=== PATIENT | male | born 1970 | race Caucasian/White ===

== ENCOUNTER 2017-02-03 08:58 | Emergency (ER) | payer SELFPAY ==
[~2017-02-03] VITALS: Ht 179.1 cm; Wt 120.2 kg
[2017-02-03] MEDS ORDERED: SODIUM CHLOR 0.9% 1000 ML INJ 1,000 ML IV SCH (09:05)
[2017-02-03] MEDS ORDERED: SODIUM CHLORIDE 0.9% FLUSH 10 ML FLUSH IV FLUSH PRN (09:15)
[2017-02-03] MEDS ORDERED: HYDROmorphone HCL PF 1 MG/ML VIAL IVS ONE (09:15)
[2017-02-03 09:18] VITALS: BP 141/100; PULSE 73; RESP 24; TEMP 97.4; O2SAT 98
[2017-02-03 09:20] VITALS: O2SAT 98
[2017-02-03 09:46] LABS: AUTOMATED NEUTROPHIL # 8.1 TH/MM3 (1.8-7.7); BASOPHIL % 0.4 % (0.0-2.0); EOSINOPHIL % 0.5 % (0.0-4.0); HEMATOCRIT 43.6 % (39.0-51.0); HEMO FLAGS DIFF FINAL; LYMPH % 10.4 % (9.0-44.0); MEAN CELL VOLUME 88.9 FL (80.0-100.0); MEAN CORPUSCULAR HEMOGLOBIN 30.3 PG (27.0-34.0); MEAN CORPUSCULAR HGB CONC 34.1 % (32.0-36.0); MONO % 4.2 % (0.0-8.0); NEUT % 84.5 % (16.0-70.0); PLATELET COUNT 197 TH/MM3 (150-450); RED CELL DISTRIBUTION WIDTH 13.3 % (11.6-17.2); WHITE BLOOD COUNT 9.6 TH/MM3 (4.0-11.0)
[2017-02-03 09:56] LABS: ANION GAP 7 MEQ/L (5-15); AST (GOT) 20 U/L (15-37); BICARBONATE 23.2 MEQ/L (21.0-32.0); BLOOD UREA NITROGEN 16 MG/DL (7-18); CHLORIDE 107 MEQ/L (98-107); GLOMERULAR FILTRATION RATE 61 ML/MIN (>89); POTASSIUM 3.7 MEQ/L (3.5-5.1); SODIUM (NA) 137 MEQ/L (136-145)
[2017-02-03 09:57] LABS: ALT (GPT) 34 U/L (12-78)
[2017-02-03 09:59] LABS: ALKALINE PHOSPHATASE 79 U/L (45-117); TOTAL BILIRUBIN ADULT 0.6 MG/DL (0.2-1.0)
--- NOTE | 2017-02-03 10:29 | RADRPT ---
EXAM DATE/TIME: 02/03/2017 09:40 [place] COMPARISON: No previous studies available for comparison. INDICATIONS : Left side abdominal pain. ORAL CONTRAST: No oral contrast ingested. RADIATION DOSE: 23.00 CTDIvol (mGy) ; Patient body habitus MEDICAL HISTORY : None SURGICAL HISTORY : None. ENCOUNTER: Initial ACUITY: 1 day PAIN SCALE: 6/10 LOCATION: Left lower quadrant TECHNIQUE: Volumetric scanning of the abdomen and pelvis was performed. Using automated exposure control and ad justment of the mA and/or kV according to patient size, radiation dose was kept as low as reasonably achievable to obtain optimal diagnostic quality images. DICOM format image data is available electro nically for review and comparison. FINDINGS: LOWER LUNGS: The visualized lower lungs are clear. LIVER: Homogeneous density without lesion. There is no dilation of the biliary tree. No calcified gallston es. SPLEEN: Normal size without lesion. PANCREAS: Within normal limits. KIDNEYS: There is a 2 mm stone either within the intramural segment of the left ureter at the UVJ or just with in the urinary bladder itself. There is mild hydronephrosis and hydroureter on the left. Mild perinep hric stranding. A 2 mm nonobstructing stone involving the right kidney. No hydronephrosis on the righ t. ADRENAL GLANDS: Within normal limits. VASCULAR: There is no aortic aneurysm. BOWEL/MESENTERY: The stomach, small bowel, and colon demonstrate no acute abnormality. There is no free intraperitone al air or fluid. ABDOMINAL WALL: Within normal limits. RETROPERITONEUM: There is no lymphadenopathy. BLADDER: No wall thickening or mass. REPRODUCTIVE: Within normal limits. INGUINAL: There is no lymphadenopathy or hernia. MUSCULOSKELETAL: Bilateral L5 pars defects with grade 1 anterolisthesis. CONCLUSION: 1. 2 mm stone either within the intramural segment of the left ureter at the UVJ or just within the u rinary bladder lumen. There is mild hydronephrosis and hydroureter. 2. 2 mm nonobstructing stone involving the right kidney. 3. Bilateral L5 pars defects with grade 1 anterolisthesis. Huy Mccormack Jr., MD on February 03, 2017 at 10:08 Board Certified Radiologist. This report was verified electronically.
[2017-02-03 10:40] LABS: BLOOD, URINE MOD (NEG); COMMENT (UR) CULT NOT INDICATED; CULTURE IF INDICATED CULT NOT INDICATED; GLUCOSE,URINE TRACE mg/dL (NEG); HYALINE CAST, URINE 1 /lpf (RARE); KETONE, URINE NEG (NEG); MUCUS URINE FEW /lpf (OCC); NITRITE,URINE NEG (NEG); SQUAMOUS EPITHELIAL CELL URINE <1 /hpf (0-5); URINE COLOR YELLOW (YELLW/STRAW)
[2017-02-03 11:07] VITALS: BP_SYST 131; BP_SYST 151; BP_DIAS 89; BP_DIAS 96; PULSE 100; PULSE 96; RESP 20; TEMP 97.7; TEMP 97.8; O2SAT 100
[2017-02-03] MEDS ORDERED: ZOFR4TAB3 SL (11:18)
--- NOTE | 2017-02-03 11:19 | PD ---
HPI Chief Complaint: Abdominal Pain Time Seen by Provider: 09:05 Travel History International Travel<30 days: No Contact w/Intl Traveler<30days: No Traveled to known affect area: No History of Present Illness HPI 46-year-old male came to the emergency room with history of severe sudden onset left lower quadrant pain that started early this morning. Patient was brought in by EMS and was thrashing on the stretcher. He was diaphoretic but vital signs were stable. Patient was nauseous but did not vomit. It was difficult to get much history out of the patient given the agony he was displaying. As per the paramedics patient has not been to an emergency room in the past. He has history of sciatica but otherwise relatively healthy. They brought his medication bottles from home and mostly there was anti-inflammatory medication. Patient was awake but in severe distress. Patient told me that the pain did not move from the spot it started which was the left lower quadrant. PFSH Past Medical History Narrative Medical List of his past medical, surgical, social and family history is reviewed from the nursing note. Diminished Hearing: No GERD: Yes Medical other: Yes (SCIATICA) Social History Alcohol Use: No Tobacco Use: No (QUIT 2009) Substance Use: No Allergies-Medications (Allergen,Severity, Reaction): Coded Allergies: codeine (Verified Allergy, Intermediate, 02/03/17) Comments List of his allergies reviewed from the nursing note. Reported Meds & Prescriptions Reported Meds & Active Scripts Active Zofran Odt (Ondansetron Odt) 4 Mg Tab 4 Mg SL Q6HR PRN Narrative Medication Awaiting for the nurse to the medical reconciliation. Review of Systems Except as stated in HPI: all other systems reviewed are Neg Gastrointestinal: Positive: Abdominal Pain Physical Exam Narrative GENERAL: Awake, alert, obese, significant distress SKIN: Focused skin assessment warm/dry. HEAD: Atraumatic. Normocephalic. EYES: Pupils equal and round. No scleral icterus. No injection or drainage. ENT: No nasal bleeding or discharge. Mucous membranes pink and moist. NECK: Trachea midline. No JVD. CARDIOVASCULAR: Regular rate and rhythm. No murmur appreciated. RESPIRATORY: No accessory muscle use. Clear to auscultation. Breath sounds equal bilaterally. GASTROINTESTINAL: Abdomen soft, non-tender, nondistended. Hepatic and splenic margins not palpable. MUSCULOSKELETAL: No obvious deformities. No clubbing. No cyanosis. No edema. NEUROLOGICAL: Awake and alert. No obvious cranial nerve deficits. Motor grossly within normal limits. Normal speech. PSYCHIATRIC: Appropriate mood and affect; insight and judgment normal. Data Data Last Documented VS Vital Signs Date Time Temp Pulse Resp B/P (MAP) Pulse Ox O2 Delivery O2 Flow Rate FiO2 02/03/17 11:21 20 02/03/17 11:07 97.7 96 151/96 (114) 100 Room Air Orders Orders Complete Blood Count With Diff (02/03/17 09:05) Comprehensive Metabolic Panel (02/03/17 09:05) Lipase (02/03/17 09:05) Urinalysis - C+S If Indicated (02/03/17 09:05) Ct Abd/Pel W/O Iv Contrast (02/03/17 09:05) Iv Access Insert/Monitor (02/03/17 09:05) Ecg Monitoring (02/03/17 09:05) Oximetry (02/03/17 09:05) Sodium Chlor 0.9% 1000 Ml Inj (Ns 1000 M (02/03/17 09:05) Sodium Chloride 0.9% Flush (Ns Flush) (02/03/17 09:15) Hydromorphone Pf Inj (Dilaudid Pf Inj) (02/03/17 09:15) Ed Discharge Order (02/03/17 11:11) Ondansetron Inj (Zofran Inj) (02/03/17 11:30) Labs Laboratory Tests Test 02/03/17 09:25 02/03/17 10:25 White Blood Count 9.6 TH/MM3 Red Blood Count 4.90 MIL/MM3 Hemoglobin 14.9 GM/DL Hematocrit 43.6 % Mean Corpuscular Volume 88.9 FL Mean Corpuscular Hemoglobin 30.3 PG Mean Corpuscular Hemoglobin Concent 34.1 % Red Cell Distribution Width 13.3 % Platelet Count 197 TH/MM3 Mean Platelet Volume 7.3 FL Neutrophils (%) (Auto) 84.5 % Lymphocytes (%) (Auto) 10.4 % Monocytes (%) (Auto) 4.2 % Eosinophils (%) (Auto) 0.5 % Basophils (%) (Auto) 0.4 % Neutrophils # (Auto) 8.1 TH/MM3 Lymphocytes # (Auto) 1.0 TH/MM3 Monocytes # (Auto) 0.4 TH/MM3 Eosinophils # (Auto) 0.0 TH/MM3 Basophils # (Auto) 0.0 TH/MM3 CBC Comment DIFF FINAL Differential Comment Blood Urea Nitrogen 16 MG/DL Creatinine 1.27 MG/DL Random Glucose 138 MG/DL Total Protein 7.3 GM/DL Albumin 3.9 GM/DL Calcium Level 8.9 MG/DL Alkaline Phosphatase 79 U/L Aspartate Amino Transf (AST/SGOT) 20 U/L Alanine Aminotransferase (ALT/SGPT) 34 U/L Total Bilirubin 0.6 MG/DL Sodium Level 137 MEQ/L Potassium Level 3.7 MEQ/L Chloride Level 107 MEQ/L Carbon Dioxide Level 23.2 MEQ/L Anion Gap 7 MEQ/L Estimat Glomerular Filtration Rate 61 ML/MIN Lipase 79 U/L Urine Color YELLOW Urine Turbidity CLEAR Urine pH 8.0 Urine Specific [place] 1.015 Urine Protein NEG mg/dL Urine Glucose (UA) TRACE mg/dL Urine Ketones NEG mg/dL Urine Occult Blood MOD Urine Nitrite NEG Urine Bilirubin NEG Urine Urobilinogen LESS THAN 2.0 MG/DL Urine Leukocyte Esterase NEG Urine RBC 30 /hpf Urine WBC 1 /hpf Urine Squamous Epithelial Cells <1 /hpf Urine Hyaline Casts 1 /lpf Urine Mucus FEW /lpf Microscopic Urinalysis Comment CULT NOT INDICATED MDM Medical Decision Making Medical Screen Exam Complete: Yes Emergency Medical Condition: Yes Medical Record Reviewed: Yes Differential Diagnosis Renal colic, acute diverticulitis, incarcerated hernia Narrative Course 11:14 AM blood test results of back and within acceptable limit. Patient does have some hematuria. CT scan was suggestive of a 2 mm stone in the left UVJ. Patient was medicated for pain as soon as he arrived. I've ordered 1 L of IV fluid bolus as well. I just went back and reassessed him and he says that his pain went down from 10 out of 10 to maybe 2 out of 10. He did vomit one since he received the pain medication but says that is probably due to the pain meds. I explained to him extensively about renal calculi and ureteral colic. I answered all his questions the best of my ability. I'm comfortable discharging him home. Procedures EKG Prior to Arrival: No Diagnosis Primary Impression: Renal colic on left side Referrals: Rupert Son DO 2 days Additional Instructions: Please call the urologist's name and number been given to you. Used a strainer age time you urinate so that he'll be able to collect the stone once he passed and take it to the urologist. Take the medication as per the prescription direction. Return to the ER if the condition worsens or any other new concerns. Med/Other Pt SpecificInfo: Prescription(s) given Scripts Hydrocodone-Acetaminophen (Hydrocodone-Acetaminophen) 5-325 mg Tab 1 TAB PO Q6H Y for PAIN, #10 TAB 0 Refills Prov: Asim Rutledge MD 02/03/17 Ondansetron Odt (Zofran Odt) 4 Mg Tab 4 MG SL Q6HR Y for Nausea/Vomiting, #15 TAB 0 Refills Prov: Asim Rutledge MD 02/03/17 Disposition: 01 DISCHARGE HOME Condition: Stable Asim Rutledge MD Feb 03, 2017 11:19
[2017-02-03 11:21] VITALS: RESP 20
[2017-02-03] MEDS ORDERED: ONDANSETRON HCL 4 MG/2 ML VIAL IV PUSH ONE (11:30)
[2017-02-03] MEDS ORDERED: HYDR-3516 PO (11:33)
== END 2017-02-03 12:15 | disposition home or self-care (01) ==
LOC: NEPE 08:58
DX: N23 Unspecified renal colic (principal)
CPT/HCPCS: 74176; 80053; 81001; 83690; 85025; 96361; 96374; 96375; 99285; J1170; J2405; J7030